=== PATIENT | male | born 1955 | race Caucasian/White ===

== ENCOUNTER 2025-04-02 14:30 | Inpatient (IN) | payer MEDICARE, MEDICAID ==
[~2025-04-02] VITALS: Ht 182.9 cm; Wt 81.0 kg
[2025-04-02] MEDS ORDERED: octreotide inj. 1,250 MCG in normal saline 250ml IV soln 243.75 ML IV SCH (14:35)
[2025-04-02] MEDS: octreotide inj. 500 MCG in normal saline 100ml IV soln 97.5 ML IV SCH (15:01)
[2025-04-02 15:08] LABS: MEAN PLATELET VOLUME 8.6 FL (7.4-10.4); RED CELL DISTRIBUTION WIDTH 14.5 % (11.5-14.5)
--- NOTE | 2025-04-02 15:20 | ELECTROCARDIOGRAPH REPORT ---
[facility] Test Date: 2025-04-02 Test Time: 15:17:58 Pat Name: SABAS NARANJO Department: EMERGENCY ROOM Room: [place] [address] Gender: M Early Interventionist: GORAN : 1955 Requested By: MAYA SINHA Order Number: [id number] Reading MD: Dr. JULIAN Person Measurements Intervals [place] Rate: 105 P: 31 [place]: 123 QRS: -41 QRSD: 89 T: 30 QT: 359 QTc: 475 Interpretive Statements Sinus tachycardia Left anterior fascicular block Borderline T wave abnormalities Electronically Signed On 04-03-2025 16:52:[address] JULIAN Person Please click the below link to view image of tracing.
[2025-04-02 15:25] LABS: APTT 27 SECONDS (22-32); INR 1.2 INR
[2025-04-02 15:31] LABS: CREATININE 1.07 MG/DL (0.60-1.10); TOTAL CARBON DIOXIDE 24.9 MMOL/L (24-32); eCRCL 72 ML/MIN; eGFR 69 ML/MIN
--- NOTE | 2025-04-02 16:50 | Physician Documentation ---
History of Present Illness ~ Chief Complaint: Bloody Emesis Stated Complaint: GI BLEED Time Seen by MD: 14:34 Mode of Arrival: Air Transport HPI This is a 70-year-old gentleman with a known history of alcohol use disorder who was transferred to us from [facility] for higher level of care and GI consultation. Evidently this patient had presented to the outside facility by EMS for evaluation of hematemesis. He complaint of upper abdominal pain. Everything started last night. No obvious trigger provocation. Vomitus initially looked like coffee grounds. He did have multiple episodes of diarrhea. Does have known history of cirrhosis and esophageal varices. The outside facility he received evaluation, was noted to have leukocytosis of 1 7.1, slight decreased hemoglobin of 12.9, normal platelets, 92% neutrophilic predominance. Metabolic panel was unremarkable and BUN creatinine ratio was normal. INR was normal at 1.3. Head negative troponin. Evidently local surgery was consulted and they recommended transfer as he has a varices and they can do diagnostic left not therapeutic EGD. At the time of my examination the patient confirms the story. He is currently pain-free. Medication Reconciliation Allergies: Coded Allergies: Penicillins (Verified Allergy, Unknown, 04/02/25) Review of Systems ROS 10 point review of systems was performed and unless noted above in HPI is negative for acute process/complaint. Physical Exam Vital Signs: Temperature: 98.9, Source: Oral, Heart Rate: 100, Respiratory Rate: 16, BP: 140/80, Pulse Oximetry: 100, Weight: 81.000 Oxygen Flow Rate: 0 Physical Exam GENERAL: Awake, alert, oriented, GCS 15, no apparent distress, non-toxic appearing, answers questions, follows commands appropriately. HEENT: Atraumatic, normocephalic, pupils equal, extraocular muscles intact, sclerae anicteric, mucus membranes moist, oropharynx is clear, no stridor. NECK: supple, full active range of motion, trachea midline, no thyromegaly, no lymphadenopathy, no JVD. CARDIOVASCULAR: regular rate/rhythm, no murmurs/gallops/rubs, Pulses are 2+ in all extremities and symmetric. Capillary refill less than 2 seconds. PULMONARY: Nonlabored, good air movement ,no respiratory distress, speaking in full sentences, clear to auscultation bilaterally, no wheezing, no ronchi, no rales, no accessory muscle use. GASTROINTESTINAL: Soft, non-tender, non-distended, normal active bowel sounds, no organomegaly, no pulsatile masses, no CVA tenderness. NEUROLOGIC: Lucid with normal mental status. Normal facial symmetry. Moves all extremities symmetrically and with purpose. No truncal ataxia. Speech is fluid without evidence of dysarthria or aphasia, no focal deficits appreciated. MUSCULOSKELETAL: There is full range of motion of all extremities. There is no joint pain or joint swelling or joint erythema. There is no muscle pain or tenderness or swelling. EXTREMITIES: warm, well-perfused, no cyanosis, no clubbing, no edema, no acute deformities. Skin: warm, dry, no rashes or lesions, no jaundice, no petechiae orpurpura. No ecchymosis. PSYCHIATRIC: Normal affect, normal insight, normal concentration. Focused exam: [] No guarding or rebound Progress Results/Orders Results/Orders Orders - MATIAS SINHA DO Normal Saline 100ml... W/Octreotide Inj. (04/02/25 14:40) Hs Troponin I W Calculations (04/02/25 16:47) Completed Orders - MATIAS SINHA DO Electrocardiogram (04/02/25 14:47) Type And Screen (04/02/25 14:47) Cbc/Diff (04/02/25 14:47) Pt Inr (04/02/25 14:47) PTT (04/02/25 14:47) MG (04/02/25 14:47) CMP (04/02/25 14:47) Hs Troponin I W Calculations (04/02/25 14:47) Medications Received in ER Medications (Trade) Dose Ordered Sig/Amanda Route PRN Reason Start Time Stop Time Status Last Admin Dose Admin Octreotide Acetate 500 mcg/ Sodium Chloride 100 ml @ 5 mls/hr Q20H IV 04/02/25 14:40 04/02/25 15:01 5 MLS/HR Vital Signs 04/02/25 04/02/25 04/02/25 04/02/25 14:38 15:21 15:31 16:38 Temp 98.9 98.9 98.9 Pulse 114 117 100 Resp 17 19 19 16 B/P (MAP) 124/86 155/100 (118) 140/80 (100) Pulse Ox 96 96 100 O2 Flow Rate 0 0 0 Laboratory Tests Test 04/02/25 14:57 White Blood Count 15.5 H Red Blood Count 3.63 L Hemoglobin 12.6 L Hematocrit 36.5 L Mean Corpuscular Volume 100.6 H Mean Corpuscular Hemoglobin 34.6 H Mean Corpuscular Hemoglobin Concent 34.4 Red Cell Distribution Width 14.5 Platelet Count 234 Mean Platelet Volume 8.6 Neutrophils (%) (Auto) 92.9 H Lymphocytes (%) (Auto) 1.6 L Monocytes (%) (Auto) 5.1 Eosinophils (%) (Auto) 0.1 Basophils (%) (Auto) 0.3 Neutrophils # (Auto) 14.4 H Lymphocytes # (Auto) 0.3 L Monocytes # (Auto) 0.8 Eosinophils # (Auto) 0.0 Basophils # (Auto) 0.0 CBC Comment Prothrombin Time 12.3 H INR International Normalized Ratio 1.2 Activated Partial Thromboplast Time 27 Coagulation Comments Sodium Level 141 Potassium Level 4.2 Chloride Level 109 H Carbon Dioxide Level 24.9 Anion Gap 7 L Blood Urea Nitrogen 18 Creatinine 1.07 Estimated GFR/1.73 m2 69 BUN/Creatinine Ratio 16.8 Glucose Level 126 H Calcium Level 8.0 L Magnesium Level 1.6 Total Bilirubin 3.9 H Aspartate Amino Transf (AST/SGOT) 81 H Alanine Aminotransferase (ALT/SGPT) 58 Alkaline Phosphatase 111 Troponin I High Sensitivity 18 Total Protein 6.6 Albumin 2.3 L Globulin 4.3 Albumin/Globulin Ratio 0.5 L Chemistry Comments EKG/XRAY/CT/US/VASC/MRI EKG : Additional Comment EKG was obtained and interpreted by myself shows sinus tachycardic, rate of 105, normal [place] interval, narrow QRS, no QT prolongation, normal axis, no STEMI Medical Decision Making Additional information obtaine: old records Findings Facility Status: ED Holds, [facility] process The plan was discussed with the patient, who demonstrates clear understanding of the plan and is in agreement with the plan unless otherwise noted in the chart. All questions have been answered, all concerns were addressed unless otherwise documented. I was available throughout their ED stay for frequent reassessment and questions. Differential Diagnoses (considered and possible or likely): [Differential diagnosis considered includes variceal bleed, gastritis, duodenal or gastric ulcer bleeding, acute appendicitis, acute cholecystitis, pancreatitis, gastritis, PUD, diverticulitis, mesenteric ischemia, abdominal aortic aneurysm, bowel obstruction, enteritis, colitis, fecal impaction, volvulus, IBS, inflammatory bowel disease, specific food intolerance, peritonitis, perforated viscous, malignancy, UTI, abscess, and abdominal pain NOS. History, physical exam, and workup exclude many of the more serious causes listed above. ] ??Differential Diagnoses (considered and unlikely, not requiring evaluation currently): [See above] MDM Data Please see [facility] for the following: Independent Historians and external Records Review. Historian: [Patient] Independent Historians: ?[Record review] Medication Management: [Reviewed medication list] Social History and determinants: [Reviewed] Please see the body of the note for the following: Any independent interpretations of ECG, imaging studies. All vitals signs/haemodynamics, ordered tests were independently reviewed and interpreted by myself. Nursing triage complaint and vitals reviewed, additional nursing notes were reviewed as available and I agree unless otherwise noted or documented in contradiction in the chart Vital Signs: Independently reviewed Labs: Independently interpreted Imaging: Independently interpreted Old Medical Records: Independently reviewed, see [facility] for relevant summary and information Pulse Oximetry: [96%] interpreted as [normal on room air] by me [Client Retention Specialist: [Regular Rate, Regular rhythm, no ectopy, NSR] reviewed and interpreted by me] Additionally notably showing: [Hemodynamics reviewed. He is a slightly tachycardic, improved with rest. No evidence of hypotension respiratory distress. CBC shows improved leukocytosis. Stable anemia. 92% neutrophilic predominance. Coagulation panel was unremarkable. Chemistry is also unremarkable. ] Tests considered but not ordered include: [EGD can be done on an inpatient basis] Social Determinants of Health Impact: Patient was evaluated in [facility], or [facility] [place] to healthcare due to below par ratio of patient to medical providers. [] Comorbid Conditions Impacting Present Evaluation and Care/Treatment: [History of cirrhosis and varices] Management Discussions with other Healthcare Providers: [Hospitalist regarding admission] Treatment and Disposition Medication Management (Given or considered): [Octreotide and Protonix]. See EMR for details Consideration for Hospitalization/Escalation/Deescalation of Care: Admission for observation is necessary for further evaluation of his upper GI bleed and hematemesis. ?ED Course:?[No clinical deterioration] ?Shared decision making:?[] Code status:?FULL Please see the full Electronic Medical Record for full details of nursing documentation, medications list, other records of complete past medical history and conditions, vital signs, laboratory studies, and any radiologic study interpretations by radiologists. Portions of this note were completed using Yapp dictation software and as a result there may exist minor errors in spelling. I have reviewed elements of past family and social history and agree as included in note. Diff Dx GI Bleed:Consideration: Include: Other (See body of main note for differential diagnosis) Departure Disposition: ADMITTED INPATIENT Admitted to Inpatient Unit: to hospitalist Impression: Primary Impression: Upper GI bleed Additional Impression: Hematemesis Referrals: NO PRIMARY CARE PROVIDER (PCP) Signature Scribe Signature: No scribe Attestation: Date: Apr 02, 2025 Time: 16:51 This note accurately reflects clinical decisions, work performed by myself, Matias Sinha, MATIAS ALMAGUER DO Apr 02, 2025 16:49
[2025-04-02] MEDS ORDERED: morphine 4 MG/ML inj SYRINge IV PRN ×2 (17:30)
[2025-04-02] MEDS ORDERED: potassium Cl 40MEQ/1/2NS 520ml 520 ML IV PRN (17:30)
[2025-04-02] MEDS ORDERED: magnesium sulf-water 2g/50mL 50 ML IV PRN (17:30)
[2025-04-02] MEDS ORDERED: magnesium sulf-water 4G/100mL 100 ML IV PRN (17:30)
[2025-04-02] MEDS ORDERED: magnesium Cl slow-release 64mg tablet PO PRN (17:30)
[2025-04-02] MEDS ORDERED: HYDROcodone/acetaminophen 10/325mg tab PO PRN (17:30)
[2025-04-02] MEDS ORDERED: potassium Cl 20 mEq SR tablet PO PRN ×2 (17:30)
[2025-04-02] MEDS ORDERED: HYDROcodone/acetaminophen 5mg/325mg tablet PO PRN (17:30)
[2025-04-02] MEDS ORDERED: diazepam inj 5 MG/ML inj. IV PRN (18:25)
[2025-04-02 18:36] LABS: % IRON SATURATION 44 % (11-46)
[2025-04-02] MEDS: normal saline 1000ml 1,000 ML IV SCH (19:11)
[2025-04-02] MEDS: nicotine 14mg patch - 24hr TD SCH (19:15)
--- NOTE | 2025-04-02 19:30 | HISTORY AND PHYSICAL-Residence ---
History & Physical Providers to CC Resident Creating Document: KELLIE LANDON RES ~ History of Present Illness Reason for Admit\Complaint: GI bleed History of Present Illness This 70-year-old male was transferred from [facility] for GI evaluation. Patient is not a great historian and states that vomitings started the day before yesterday after drinking few beers in the morning. Had coffee- ground emesis about 5 times a day. Also complains of diffuse abdominal pain. Denies any diarrhea, blood in stool or black tarry stools. Does not take any medications at home and drinks about 2-3 beers every other day and also smokes three cigarettes per week and has been doing these for many years. Denies any IV drug abuse. Smokes marijuana every night. Rarely drinks coffee. Stated that he had about 15 paracentesis done in the past and last one was about few years back. Denies any NSAIDs usage. Denies having an EGD ever in the past. Mentioned that he had a colonoscopy about five years back for fecal impaction and denies any polyps. Denies any chest pain, dizziness or syncope, dysuria Per the outside hospital, he came in with a chief concern of coffee-ground emesis and was also febrile in the ER. He also has a history of hepatitis-C. He received Zosyn and vancomycin at the outside hospital. Was given Protonix and was started on octreotide drip. Allergies: Coded Allergies: Penicillins (Verified Allergy, Unknown, 04/02/25) Past Medical History Past Medical History Patient denies any past medical history. Per outside hospital records, history of hepatitis-C, cirrhosis with varices, portal vein thrombosis-unsure about acuity Past Surgical History Surgical History Comment Patient denies any surgical procedures. Per the outside hospital record, had colon surgery in the past. Cholecystectomy Abdominal x-ray done at the outside hospital shows no evidence of bowel obstruction or perforation Received 1 L Ringer's lactate, Protonix 40 mg IV once, Zofran 4 mg IV once, morphine 4 mg IV once at the outside hospital. 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 Drinks about 2-3 beers every other day and has been doing it for more than 30 years. Smokes three cigarettes per week for close to 30 years. Smokes marijuana at night. Denies any other recreational drug abuse ROS ROS Constitutional: No fever, chills, dizziness, weakness, weight gain or loss Eyes: No pain, erythema, discharge, blurring of vision ENT: No sore throat, epistaxis, tinnitus Cardiovascular: No chest pain, chest pressure, chest discomfort, palpitations, syncope, lower extremity edema, paroxysmal nocturnal dyspnea Respiratory: No shortness of breath, cough, hemoptysis Gastrointestinal: coffee ground emesis and abdominal pain present. No diarrhea, constipatio Genitourinary: No frequency, urgency, nocturia, hematuria or dysuria Musculoskeletal: No myalgias or arthralgias Integumentary: No change in skin, hair, nails. No swelling, bruising, abrasions Neurologic: No headache, neck pain, numbness or tingling of extremities, weakness Psychiatric: No delusions, depression, loss of interest in normal activity or change in sleep pattern, hallucinations, suicidal ideations Endocrine: No fatigue, weakness, polydipsia, polyuria, change in appetite, heat or cold intolerance, sweating, dry skin Hematological: No bleeding, petechiae, bruising Allergies: No asthma or urticaria Exam Vitals: Vital Signs Date Time Temp Pulse Resp B/P (MAP) Pulse Ox O2 Delivery O2 Flow Rate FiO2 04/02/25 18:27 17 04/02/25 18:24 123 93 0 04/02/25 16:38 98.9 General: Alert and oriented x4 HEENT: Normocephalic and atraumatic. Pupils equal round reactive to light and accommodation. Extraocular movements intact. Oral and nasal mucosa moist Neck: Trachea is in midline. No masses or JVD Chest: Bilateral normal breath sounds. No crackles, rhonchi or wheezes Cardiovascular: Regular rate and rhythm. S1-S2 normal. No rubs or murmurs Abdomen: Soft, mildly distended. Diffusely tender and significant tenderness in the hypogastric region, epigastric region and right hypochondriac region. Guarding present. No rigidity. Normoactive bowel sounds Extremities: No cyanosis, clubbing or edema Central Nervous System: No gross sensory or motor deficits. No cerebellar signs. No asterixis Skin: Warm and dry Diagnostic Data Last Recorded Lab Results: 04/02/25 1457 04/02/25 1457 Diagnostic Data: Laboratory Tests Test 04/02/25 14:57 Prothrombin Time 12.3 SECONDS (9.0-12.0) H INR International Normalized Ratio 1.2 INR Activated Partial Thromboplast Time 27 SECONDS (22-32) Coagulation Comments Advance Care Planning Advanced Care plannin - 30 Minutes Additional Plan Decompensated Liver Cirrhosis, gastric and splenic varices Portal vein thrombosis-unsure if acute or chronic Upper GI bleed History of hepatitis-C, alcohol abuse Possible colitis Macrocytic anemia Hyperbilirubinemia HGB 12.6. MCV 100.6. WBC elevated-15.5 Procalcitonin elevated. INR 1.2. Hypoalbuminemia 2.3 Elevated total bilirubin-3.9. Elevated AST 81. Meld sodium score 14 Blood pressure stable. [id number]/minute CTabdomen/pelvis with IV contrast done at the outside hospital showed severe diffuse diverticulosis from the cecum to the sigmoid colon, likely diverticulitis involving the right colon possibly superimposed on colitis. The ascending, transverse and proximal descending colon or moderately thickened. Severe cirrhosis with portal vein thrombosis and recanalization. Severe splenic and gastric varices-overall significantly progressed since 2019 He received vancomycin 1.5 g IV once, Zofran 4 mg IV once, Protonix 40 mg IV once, Zosyn 3.375 g IV once and also was started on octreotide drip at the outside hospital Given another dose of Protonix 40 mg IV once and started Protonix drip Continue octreotide drip Started ciprofloxacin 400 mg IV b.i.d. and metronidazole 500 mg IV q.8h Received 1 L Ringer's lactate at the outside hospital Started normal saline at 70 cc/hour Restarted normal, withdrawal protocol with thiamine, folic acid, multivitamins, Ativan diazepam Strongly recommended to quit alcohol abuse Not anticoagulating for portal thrombosis due to ongoing GI bleed Pending UA and urine tox. Ammonia level ordered Elevated lactic acid. 3.3. Repeat lactic acid in 2 hours Blood cultures ordered ER physician informed Dr. Richardson that he will consult Dr. Antonio BARBA after midnight Check H&H q.4h DVT prophylaxis: SCDs Kellie Landon MD Internal Medicine Resident, PGY 3 Date of Service: Apr 02, 2025 Billing Provider: ARELY RICHARDSON MD Common Visit Codes: [id number] INP/OBS CARE (HIGH) Secondary Visit Codes: [id number] CARE PLAN 30 MINUTES KELLIE LANDON RES Apr 02, 2025 19:30 ARELY RICHARDSON MD Apr 03, 2025 08:43
[2025-04-02 19:42] LABS: URINE AMPHETAMINE SCREEN POSITIVE (Neg); URINE BARBITUATE SCREEN NEGATIVE (Neg); URINE BENZODIAZEPINES SCREEN NEGATIVE (Neg); URINE CANNABINOID SCREEN POSITIVE (Neg); URINE COCAINE SCREEN NEGATIVE (Neg); URINE METHADONE SCREEN NEGATIVE (Neg); URINE OPIATE SCREEN POSITIVE (Neg); URINE PHENCYCLIDINE SCREEN NEGATIVE (Neg)
[2025-04-02 19:54] LABS: LEUKOCYTE ESTERASE ,URINE NEGATIVE (Neg); OCCULT BLOOD,URINE NEGATIVE (Neg)
[2025-04-02] MEDS: K and/or MAG REPLACEMENT MC SCH (20:00)
[2025-04-02] MEDS ORDERED: metroNIDAZOLE-Flagyl 500mg/NS 100 ML IV SCH (20:00)
[2025-04-02 20:02] LABS: NITRITES, URINE NEGATIVE (Neg); UA COLLECTION TYPE VOIDED
[2025-04-02 20:03] LABS: AMORPHOUS URATES 1+; MUCUS STRANDS NONE SEEN /LPF (Neg); SQUAMOUS EPITHELIAL CELL,UR FEW /LPF (FEW)
[2025-04-02 20:19] LABS: MEAN PLATELET VOLUME 8.3 FL (7.4-10.4); RED CELL DISTRIBUTION WIDTH 14.4 % (11.5-14.5)
[2025-04-02] MEDS: thiamine 100mg/ml 2ml inj. IV SCH (21:40)
[2025-04-02] MEDS: ciprofloxacin lact 400MG/200ML 200 ML IV SCH (21:44)
[2025-04-02] MEDS ORDERED: NO HOME MEDS (21:53)
[2025-04-02 22:50] VITALS: BP 147/96; PULSE 100; RESP 20; TEMP 98.5; O2SAT 97
[2025-04-02] MEDS: pantoprazole 40MG/NS 100ML BAG 100 ML IV SCH (23:20)
[2025-04-02 23:38] LABS: MEAN PLATELET VOLUME 8.3 FL (7.4-10.4); RED CELL DISTRIBUTION WIDTH 14.2 % (11.5-14.5)
[2025-04-02] MEDS: metroNIDAZOLE-Flagyl 500mg/NS 100 ML IV SCH (23:57)
[2025-04-03] VITALS (8 sets, daily range): BP systolic 125–160; BP diastolic 50–98; PULSE 74–89; RESP 14–23; TEMP 97.5–100.7; O2SAT 91–98
[2025-04-03] MEDS: normal saline 1000ML IV soln IVB ONE (01:14)
[2025-04-03 03:42] LABS: MEAN PLATELET VOLUME 8.7 FL (7.4-10.4); RED CELL DISTRIBUTION WIDTH 14.5 % (11.5-14.5)
[2025-04-03 03:59] LABS: CREATININE 0.93 MG/DL (0.60-1.10); PHOSPHORUS 2.7 MG/DL (2.3-4.5); TOTAL CARBON DIOXIDE 24.4 MMOL/L (24-32); eCRCL 82 ML/MIN; eGFR 81 ML/MIN
[2025-04-03 07:53] LABS: MEAN PLATELET VOLUME 8.7 FL (7.4-10.4); RED CELL DISTRIBUTION WIDTH 15.1 % (11.5-14.5)
[2025-04-03] MEDS: folic acid 1mg/0.2ml inj IV SCH (08:00)
[2025-04-03] MEDS: multivitamins, therapeutics tablet PO SCH (08:00)
[2025-04-03 11:36] LABS: MEAN PLATELET VOLUME 8.7 FL (7.4-10.4); RED CELL DISTRIBUTION WIDTH 14.6 % (11.5-14.5)
[2025-04-03] MEDS: guaiFENesin/DM 10ml UD oral syrup PO PRN (13:24)
[2025-04-03 15:36] LABS: MEAN PLATELET VOLUME 8.5 FL (7.4-10.4); RED CELL DISTRIBUTION WIDTH 14.6 % (11.5-14.5)
--- NOTE | 2025-04-03 19:18 | PROGRESS NOTE ---
Daily Progress Note Providers to CC ~ Antibiotic Timeout Antibiotic Ordered?: Yes Subjective Patient was seen in presence of surgical unit nursing staff today. No further episode of blood from mouth noticed no blood noticed in his stools. Pain is still there over right lower quadrant no other concerns. Objective Vital Signs Date Time Temp Pulse Resp B/P (MAP) Pulse Ox O2 Delivery O2 Flow Rate FiO2 04/03/25 10:00 98.2 80 19 135/87 (103) 97 Room Air 04/02/25 21:00 0 CTabdomen/pelvis with IV contrast done at the outside hospital showed severe diffuse diverticulosis from the cecum to the sigmoid colon, likely diverticulitis involving the right colon possibly superimposed on colitis. The ascending, transverse and proximal descending colon or moderately thickened. Severe cirrhosis with portal vein thrombosis and recanalization. Severe splenic and gastric varices-overall significantly progressed since 2019 Result Diagram: 04/03/25 1508 04/03/25 0325 General-patient not in any acute distress, alert awake oriented, chronically ill-appearing HEENT-atraumatic normocephalic, neck supple without elevated JVD, no thyromegaly or carotid bruit. No lymphadenopathy bilaterally. Eyes-no icterus or pallor seen in eyes Chest-mildly decreased breath sounds to auscultation bilaterally, breathing nonlabored no tachypnea, no wheezing, no crepitation, no crackles. Heart-S1-S2 normal, regular heart rate no murmur Abdomen bowel sounds positive on auscultation, soft nondistended , signs of tenderness present over right lower quadrant on palpation, no guarding, no rigidity Skin no active skin rash Neurology-grossly intact, nonfocal alert awake oriented Extremity- no pedal edema able to move all 4 extremities Psychiatry - patient is not confused or agitated cooperated during physical examination Coagulation Studies Laboratory Tests Test 04/02/25 14:57 Prothrombin Time 12.3 SECONDS (9.0-12.0) H INR International Normalized Ratio 1.2 INR Activated Partial Thromboplast Time 27 SECONDS (22-32) Coagulation Comments Problem\Assessment\Plan Decompensated Liver Cirrhosis, gastric and splenic varices Portal vein thrombosis with recannulization possible Upper GI bleed History of hepatitis-C, alcohol abuse Likely acute diverticulitis involving right colon Macrocytic anemia Hyperbilirubinemia HGB 12.6. MCV 100.6. WBC elevated-15.5 Procalcitonin elevated. INR 1.2. Hypoalbuminemia 2.3 Elevated total bilirubin-3.9. Elevated AST 81. Meld sodium score 14 Blood pressure stable. Tachycardia resolved He received vancomycin 1.5 g IV once, Zofran 4 mg IV once, Protonix 40 mg IV once, Zosyn 3.375 g IV once and also was started on octreotide drip at the outside hospital Given another dose of Protonix 40 mg IV once and started Protonix drip will Continue octreotide drip Started ciprofloxacin 400 mg IV b.i.d. and metronidazole 500 mg IV q.8h Received 1 L Ringer's lactate at the outside hospital Started normal saline at 70 cc/hour Restarted normal, withdrawal protocol with thiamine, folic acid, multivitamins, Ativan diazepam Strongly recommended to quit alcohol abuse Not anticoagulating for portal thrombosis due to ongoing GI bleed Pending UA and urine tox. Ammonia level ordered Elevated lactic acid. 3.3. Repeat lactic acid 1.9 Blood cultures showing no growth so far ER physician informed me yesterday that he will consult Dr. Alvarez GI consulted again this morning. Dr. Alvarez is willing to evaluate the patient Patient was started on clear liquid diet and we will keep him NPO after midnight will Check H&H q.4h Urine drug screen positive for meth, cannabis and opiate. We will request substance abuse navigator consultation DVT prophylaxis: SCDs Patient's current condition is guarded we will continue to follow patient in AM . Date of Service: Apr 03, 2025 Billing Provider: ARELY BLACKWELL MD Common Visit Codes: [id number] INP/OBS CARE(HIGH) ARELY BLACKWELL MD Apr 03, 2025 19:18
[2025-04-03 19:25] LABS: MEAN PLATELET VOLUME 8.6 FL (7.4-10.4); RED CELL DISTRIBUTION WIDTH 14.3 % (11.5-14.5)
[2025-04-03] MEDS: ondansetron/PF 4mg/2ml inj IV PRN (21:36)
[2025-04-03 23:36] LABS: MEAN PLATELET VOLUME 8.3 FL (7.4-10.4); RED CELL DISTRIBUTION WIDTH 14.6 % (11.5-14.5)
[2025-04-04] VITALS (12 sets, daily range): BP systolic 102–159; BP diastolic 63–100; PULSE 65–78; RESP 15–20; TEMP 98.1–98.4; O2SAT 94–100
[2025-04-04 07:41] LABS: MEAN PLATELET VOLUME 8.8 FL (7.4-10.4); RED CELL DISTRIBUTION WIDTH 14.0 % (11.5-14.5)
[2025-04-04 07:56] LABS: CREATININE 0.78 MG/DL (0.60-1.10); PHOSPHORUS 2.3 MG/DL (2.3-4.5); TOTAL CARBON DIOXIDE 25.0 MMOL/L (24-32); eCRCL 98 ML/MIN; eGFR > 90 ML/MIN
[2025-04-04] MEDS: ringers solution, lacted 1,000 ML IV SCH (13:20)
[2025-04-04] MEDS ORDERED: fentaNYL/PF 50MCG/1 ML 2ML syringe IV PRN ×2 (13:20)
[2025-04-04] MEDS ORDERED: ondansetron/PF 4mg/2ml inj IV PRN (13:20)
[2025-04-04] MEDS ORDERED: propofol 10mg/ml 20ml vial IV ONE (13:50)
[2025-04-04] MEDS ORDERED: fentaNYL/PF 50MCG/1 ML 2ML syringe ONE (13:54)
[2025-04-04] MEDS ORDERED: midazolam 1 mg/ML 2ml injection ONE (13:56)
[2025-04-04] MEDS ORDERED: ACET-1008 PO (15:35)
[2025-04-04] MEDS ORDERED: NICO-631 TD (15:36)
[2025-04-04] MEDS ORDERED: CIPR-259 PO (15:36)
[2025-04-04] MEDS ORDERED: METR-159 PO (15:36)
[2025-04-04] MEDS ORDERED: FOLI1TAB27 PO (15:36)
[2025-04-04] MEDS ORDERED: MULT-25 PO (15:36)
[2025-04-04] MEDS ORDERED: thiamine tablet PO (15:36)
[2025-04-04] MEDS ORDERED: PANT40TA54 PO (15:36)
--- NOTE | 2025-04-04 19:45 | DISCHARGE SUMMARY ---
Discharge Summary Providers to CC ~ Discharge Summary Admission Diagnosis: Hematemesis, n/v and diarrhea, cirrhosis of liver, abdomen pain Hospital Course DATE OF ADMISSION: 04/02/25 DATE OF DISCHARGE:04/04/25 CBC testing done on April 04, 2025 WBC 6.2 hemoglobin 11.8 hematocrit 33.4 platelet count 190. Serum chemistry done on April 04, 2025 sodium 136 potassium 3.8 creatinine 0.78 GFR 90 total bilirubin 1.2 AST 59 ALT 40 alkaline phosphatase 90. Lipase 129, procalcitonin 0.53. Blood culture showed no growth after two days. TIBC 203 , serum iron 90 CTabdomen/pelvis with IV contrast done at the outside hospital showed severe diffuse diverticulosis from the cecum to the sigmoid colon, likely diverticulitis involving the right colon possibly superimposed on colitis. The ascending, transverse and proximal descending colon or moderately thickened. Severe cirrhosis with portal vein thrombosis and recanalization. Severe splenic and gastric varices-overall significantly progressed since 2020 Discharge Diagnosis\\Comment: Decompensated Liver Cirrhosis, gastric and splenic varices Portal vein thrombosis with recannulization possible Upper GI bleed History of hepatitis-C, alcohol abuse Likely acute diverticulitis involving right colon Macrocytic anemia Hyperbilirubinemia Urine drug screen positive for meth, cannabis and opiate. Operations\\Procedures: EGD Consultants: Dr Alvarez Complications: None Condition on DC: Stable New Medications: Ciprofloxacin HCl (Cipro) 500 Mg Tablet 1 TAB PO Q12H for 7 Days, #14 TAB Metronidazole* (Flagyl*) 500 Mg Tablet 1 TAB PO BID for 7 Days, #14 TAB Pantoprazole Sodium (Pantoprazole Sodium) 40 Mg Tablet.dr 40 MG PO BID for 30 Days, #60 TAB.SR Folic Acid* (Folic Acid*) Y Tab 1 MG PO DAILY for 30 Days, #30 TAB Multivitamin with Folic Acid (Thera Tablet) 400 Mcg Tablet 1 EACH PO Q24H for 30 Days, #30 TAB Nicotine 14 MG Patch* (Habitrol 14 MG Patch*) 1 Each Patch.td24 1 PATCH TD DAILY for 30 Days, #30 PATCH [thiamine tablet] () 100 MG TABLET 100 MG PO DAILY for 30 Days, #30 Changed Medications: Acetaminophen (Tylenol) 325 Mg Tablet 1 TAB PO Q8H PRN for pain or fever for 10 Days, #30 TAB (Changed from: QDAY PRN; 30) Discontinued Medications: Home Med List (No Home Medications) Each Discharge Summary: As per admitting history and physical note" This 70-year-old male was transferred from [facility] for GI evaluation. Patient is not a great historian and states that vomitings started the day before yesterday after drinking few beers in the morning. Had coffee-ground emesis about 5 times a day. Also complains of diffuse abdominal pain. Denies any diarrhea, blood in stool or black tarry stools. Does not take any medications at home and drinks about 2-3 beers every other day and also smokes three cigarettes per week and has been doing these for many years. Denies any IV drug abuse. Smokes marijuana every night. Rarely drinks coffee. Stated that he had about 15 paracentesis done in the past and last one was about few years back. Denies any NSAIDs usage. Denies having an EGD ever in the past. Mentioned that he had a colonoscopy about five years back for fecal impaction and denies any polyps. Denies any chest pain, dizziness or syncope, dysuria Per the outside hospital, he came in with a chief concern of coffee-ground emesis and was also febrile in the ER. He also has a history of hepatitis-C. He received Zosyn and vancomycin at the outside hospital. Was given Protonix and was started on octreotide drip." During hospitalization patient was treated for Decompensated Liver Cirrhosis, gastric and splenic varices Portal vein thrombosis with recannulization possible Upper GI bleed History of hepatitis-C, alcohol abuse Likely acute diverticulitis involving right colon Macrocytic anemia Hyperbilirubinemia HGB 12.6. MCV 100.6. WBC elevated-15.5 Procalcitonin elevated. INR 1.2. Hypoalbuminemia 2.3 Elevated total bilirubin-3.9. Elevated AST 81. Meld sodium score 14 Blood pressure stable. Tachycardia resolved He received vancomycin 1.5 g IV once, Zofran 4 mg IV once, Protonix 40 mg IV once, Zosyn 3.375 g IV once and also was started on octreotide drip at the outside hospital Given another dose of Protonix 40 mg IV once and started Protonix drip will Continue octreotide drip Started ciprofloxacin 400 mg IV b.i.d. and metronidazole 500 mg IV q.8h Received 1 L Ringer's lactate at the outside hospital Started normal saline at 70 cc/hour Restarted normal, withdrawal protocol with thiamine, folic acid, multivitamins, Ativan diazepam Strongly recommended to quit alcohol abuse Not anticoagulating for portal thrombosis due to ongoing GI bleed Elevated lactic acid. 3.3. Repeat lactic acid 1.9 Blood cultures showing no growth so far ER physician informed me yesterday that he will consult Dr. Alvarez GI consulted again this morning. Dr. Alvarez is willing to evaluate the patient Patient was started on clear liquid diet and we will keep him NPO after midnight Checked H&H q.4h EGD done during hospitalization by GI specialist which showed grade 2 esophageal varices, portal hypertensive gastropathy which was biopsied. Normal duodenal bulb and 2nd portion of duodenum. Recommended to resume regular diet. Urine drug screen positive for meth, cannabis and opiate. We will request substance abuse navigator consultation DVT prophylaxis: SCDs he has been afebrile and getting discharged home in stable condition. Patient is seen and examined on the day of discharge. All labs, diagnostic workup and discharge plan discussed with patient before her discharge. All questions and queries answered to the best of my professional medical knowledge. I heard patient's concerns and address appropriately. Patient was cleared by Physical therapy team for home discharge. dairy frozen manager Aletha involved in patient's discharge plan. Discharge instructions provided to the patient. Patient needs follow-up with the primary care physician or in urgent care after hospital discharge. Follow-up biopsy results with GI specialist Dr. Alvarez in outpatient setting. Strongly advised to stop alcohol tobacco and recreational drugs and risks explained. Activity as tolerated. Repeat CBC sed rate procalcitonin and BMP in five days in outpatient setting. General-patient not in any acute distress, alert awake oriented, chronically ill-appearing HEENT-atraumatic normocephalic, neck supple without elevated JVD, no thyromegaly or carotid bruit. No lymphadenopathy bilaterally. Eyes-no icterus or pallor seen in eyes Chest-mildly decreased breath sounds to auscultation bilaterally, breathing nonlabored no tachypnea, no wheezing, no crepitation, no crackles. Heart-S1-S2 normal, regular heart rate no murmur Abdomen bowel sounds positive on auscultation, soft nondistended , signs of tenderness present over right lower quadrant on palpation, no guarding, no rigidity Skin no active skin rash Neurology-grossly intact, nonfocal alert awake oriented Extremity- no pedal edema able to move all 4 extremities Psychiatry - patient is not confused or agitated cooperated during physical examination *Problems/Diagnosis: (1) Hematemesis Status: Acute (2) Acute diverticulitis Total Time Spent on D/C: > 30 Minutes Date of Service: Apr 04, 2025 Billing Provider: ARELY BLACKWELL MD Common Visit Codes: 57380-BPVWHNA INP/OBS CARE (HIGH) Secondary Visit Codes: 98718-[id number] CARE PLAN 30 MINUTES ARELY BLACKWELL MD Apr 04, 2025 19:44
--- NOTE | 2025-04-06 08:39 | CONSULTATION ---
DATE OF CONSULTATION: 04/03/2025 DICTATING PHYSICIAN: Jose Miguel Reyes MD REASON FOR CONSULTATION: Upper GI bleed. HISTORY OF PRESENT ILLNESS: The patient is 70 years old, apparently transferred from [facility] because of hematemesis. The patient is a poor historian. However, the history is that the patient has had coffee ground emesis about 5 times prior to coming to admission. The patient does have diffuse abdominal pain. Denies diarrhea or melena. The patient has a history of alcohol drinking 2-3 beers everyday and smokes about 3-4 cigarettes per day. No history of any cannabis use. Apparently, the patient has liver disease and has had a paracentesis in the past. No recent history of aspirin or nonsteroidal anti-inflammatories. Never had an endoscopy done. The patient has had a colonoscopy 5 years ago. The patient also has a history of hepatitis C. PAST MEDICAL HISTORY: As above. FAMILY HISTORY: Noncontributory. PERSONAL HISTORY: Noncontributory. REVIEW OF SYSTEMS: A 12-point review of systems is essentially same as history of present illness. PHYSICAL EXAMINATION: On physical exam, the patient is alert and oriented x 3, appears to be in no apparent distress. Vital signs normal. Heart and lungs are normal. Abdomen is soft and nontender. No masses. No organomegaly. Bowel sounds are present. Extremities reveal no clubbing, cyanosis, or edema. Cranial nerves bilaterally within normal limits. Hematologic exam reveals no anemia, petechiae or purpura. Psychologic exam within normal limits. LABORATORY VALUES: Laboratory values were reviewed, which revealed hemoglobin of 11, platelet count was essentially normal, coagulation profile was normal. IMPRESSION: The patient has not had any imaging study; however, the patient has a history of liver disease. The patient with a history of liver cirrhosis, possibly secondary to hepatitis C. Also has a history of gastroesophageal varices from previous history. CT of the abdomen done in [place] did reveal diverticulosis and liver cirrhosis with portal vein thrombosis and recanalization. They also noticed splenic and gastric varices in the CT scan. There was also a question of diverticulitis. Since the patient has been here, the patient has remained stable. The patient has been started on Cipro and Flagyl and octreotide drip and IV Protonix. The patient has remained stable from the hemodynamic standpoint. RECOMMENDATIONS: EGD tomorrow. The risks and benefits were explained, understands and wishes to proceed. Further recommendations will be made after the endoscopy. Otherwise, I will continue current management. We will consider and decide about prophylaxis for variceal bleeding as she has not had before and depending on the recommendations. Also, we will monitor weight and place her on a hepatic diet. We will follow in the office once she is discharged for further maintenance of treatment and for further management of liver cirrhosis. Jose Miguel Reyes MD TID: [id number] RECEIPT: [id number] PC/M Prabhjot MTDD
== END 2025-04-04 18:35 | disposition home or self-care (01) | DRG 432 ==
LOC: ER 14:31 → ED HOLD 17:35 → SUR 3N 23:03
PROVIDERS: ADMIT Internal Medicine; ATTEND Internal Medicine
PROC: 0DB68ZX Excision of Stomach, Via Natural or Artificial Opening Endoscopic, Diagnostic (ICD-10-PCS; principal; 2025-04-04 13:50)
DX: K74.60 Unspecified cirrhosis of liver (principal); I81 Portal vein thrombosis; I85.11 Secondary esophageal varices with bleeding; K57.32 Diverticulitis of large intestine without perforation or abscess without bleeding; D53.9 Nutritional anemia, unspecified; F10.10 Alcohol abuse, uncomplicated; K76.6 Portal hypertension; E88.09 Other disorders of plasma-protein metabolism, not elsewhere classified; I86.4 Gastric varices; B19.20 Unspecified viral hepatitis C without hepatic coma; F12.90 Cannabis use, unspecified, uncomplicated; F17.210 Nicotine dependence, cigarettes, uncomplicated; I86.8 Varicose veins of other specified sites; K31.89 Other diseases of stomach and duodenum; R00.0 Tachycardia, unspecified; Z88.0 Allergy status to penicillin; Z90.49 Acquired absence of other specified parts of digestive tract
CPT/HCPCS: 36415; 43239; 80053; 80305; 81001; 82140; 82248; 82948; 83540; 83550; 83605; 83690; 83735; 84100; 84145; 84484; 85025; 85027; 85610; 85651; 85730; 86885; 86900; 86901; 87040; 87081; 93005; 99285; A4615; A4620; G0378; J0744; J2250; J2354; J2405; J2470; J2704; J3010; J3411; J3490; J7030